=== PATIENT | male | born 1975 | race Caucasian/White ===

== ENCOUNTER 2017-01-20 17:53 | Emergency (ER) | payer BC ==
[~2017-01-20] VITALS: Ht 185.4 cm; Wt 92.9 kg
[2017-01-20 17:56] VITALS: TEMP 37; Ht 185.4 cm; Wt 92.9 kg
[2017-01-20] MEDS ORDERED: CLINDAMYCIN IV 900 MG in DEXTROSE 5% 100ML 100 ML IV ONE (18:15)
[2017-01-20] MEDS ORDERED: CLIN300C2 PO (18:22)
[2017-01-20 18:48] LABS: HEMATOCRIT 45.2 % (42-52); MEAN CELL VOLUME 90.2 fL (80-100); MEAN CORPUSCULAR HEMOGLOBIN 30.7 pg (25-34); MEAN CORPUSCULAR HGB CONC 34.1 g/dl (32-36); MEAN PLATELET VOLUME 9.6 fL (7.4-10.4); PLATELET COUNT 233 K/uL (130-400); RED BLOOD COUNT 5.01 M/uL (4.7-6.1); WHITE BLOOD COUNT 9.67 K/uL (4.8-10.8)
--- NOTE | 2017-01-20 19:03 | EMERGENCY ROOM VISIT NOTE ---
History Report prepared by Chong: Deuce Olmstead Under the Supervision of: Dr. Vijay Hartmann D.O. First contact with patient: 18:02 Chief Complaint: EAR PAIN Stated Complaint: INFECTION BEHIND R EAR History of Present Illness The patient is a 42 year old male who presents to the Emergency Room with complaints of a worsening possible infection behind his right ear that began two days ago. He rates his pain an 8/10 in severity. Since then, he has been able to pop the area. He states that the material that was expressed was brown and odorous. He received a prescription for Clindamycin that he has taken 3 doses of so far. He states that the area is very sore to touch. He has noticed the area is swelling and causing his neck to swell as well. He denies any history of MRSA. He denies any fevers. Source of History: patient Onset: two days ago Position: ear (behind right) Symptom Intensity: 8/10 Quality: ache Timing: constant Associated Symptoms: No fevers Note: He is having some increased swelling to the area and the right side of the neck as well. Review of Systems See HPI for pertinent positives & negatives. A total of 10 systems reviewed and were otherwise negative. Past Medical & Surgical Medical Problems: (1) No Known Active Medical Problems Family History Cancer Diabetes mellitus Hypertension Social History Smoking Status: Current Some Day Smoker Smokeless Tobacco Use: No Alcohol Use: occasionally Drug Use: none Marital Status: Housing Status: lives with significant other Occupation Status: employed Current/Historical Medications Scheduled Clindamycin Hcl (Cleocin), 300 MG PO TID Allergies Coded Allergies: Diphenhydramine (Verified Adverse Reaction, Severe, RESTLESSNESS, 01/20/17) Physical Exam Vital Signs Date Time Temp Pulse Resp B/P (MAP) Pulse Ox O2 Delivery O2 Flow Rate FiO2 01/20/17 17:56 37.0 90 18 134/83 97 Room Air Physical Exam CONSTITUTIONAL/VITAL SIGNS: Reviewed / noted above. GENERAL: Non-toxic in appearance. INTEGUMENTARY: Warm, dry, and [place]. HEAD: Normocephalic. EYES: without scleral icterus or trauma. ENT/OROPHARYNX: clear and moist. There is an area of right posterior oracular erythema with a small amount of edema and an area draining a small amount of sanguinous fluid. LYMPHADENOPATHY/NECK: Is supple without lymphadenopathy or meningismus. RESPIRATORY: Lungs clear and equal. CARDIOVASCULAR: Regular rate and rhythm. GI/ABDOMEN: Soft and nontender. No organomegaly or pulsatile mass. No rebound or guarding. Normal bowel sounds. EXTREMITIES: Warm and well perfused. BACK: No CVA tenderness. NEUROLOGICAL: Intact without focal deficits. PSYCHIATRIC: normal affect. MUSCULOSKELETAL: Normally developed with good muscle tone. Medical Decision & Procedures Laboratory Results 01/20/17 18:40 Test 01/20/17 18:40 Red Blood Count 5.01 M/uL (4.7-6.1) Mean Corpuscular Volume 90.2 fL (80-100) Mean Corpuscular Hemoglobin 30.7 pg (25-34) Mean Corpuscular Hemoglobin Concent 34.1 g/dl (32-36) RDW Standard Deviation 40.3 fL (36.4-46.3) RDW Coefficient of Variation 12.2 % (11.5-14.5) Mean Platelet Volume 9.6 fL (7.4-10.4) Laboratory results as stated above per my review. Medications Administered Medications (Trade) Dose Ordered Sig/Patsy Route Start Time Stop Time Status Last Admin Dose Admin Clindamycin Phosphate 900 mg/ Dextrose 106 ml @ 100 mls/hr ONE ONCE IV 01/20/17 18:15 01/20/17 19:18 01/20/17 18:38 100 MLS/HR ED Course 180: Previous medical records were reviewed. The patient was evaluated in room B10. A complete history and physical examination was performed. 1814: Ordered Clindamycin Phosphate 900 mg/Dextrose 106 ml @ 100 mls/hr IV 1904: On reevaluation, the patient is resting. I discussed the results and findings with the patient. He verbalized agreement of the treatment plan. He was discharged home. Medical Decision Differential diagnosis: Etiologies such as cellulitis, abscess, MRSA infection, DVT, necrotizing fasciitis, dermatitis, drug eruption, as well as others were entertained.. This is a 42-year-old male who presents to the ED with a chief complaint of an infection behind his right ear. The patient states that he has had this infection for a few days. He states that he squeezed it and draining some pus out of it. The patient was seen at [facility] last night. He was started on clindamycin. The patient has taken 3 doses of the clindamycin thus far. He states that he has not noticed any improvement. Exam reveals some posterior auricular erythema and mild swelling behind the right ear. There is a small wound that is draining some sanguinous fluid. There is no obvious abscess. There is no significant swelling of the face. There is no lymphadenopathy. The patient was given IV clindamycin 900 mg. He had a normal CBC. The patient will continue his clindamycin and anticipate improvement over the next several days. They ([facility]) did do a culture which is pending. Medication Reconcilliation Current Medication List: was personally reviewed by me Blood Pressure Screening Patient's blood pressure: Normal blood pressure Blood pressure disposition: Did not require urgent referral Impression Primary Impression: Cellulitis Scribe Attestation The scribe's documentation has been prepared under my direction and personally reviewed by me in its entirety. I confirm that the note above accurately reflects all work, treatment, procedures, and medical decision making performed by me. Departure Information Dispostion Home / Self-Care Referrals No Doctor, Assigned (PCP) Forms HOME CARE DOCUMENTATION FORM, IMPORTANT VISIT INFORMATION, WORK / SCHOOL INSTRUCTIONS Patient Instructions My [facility] Additional Instructions Continue clindamycin. Follow-up with [facility] for culture results. Follow-up with your doctor for recheck in 2-3 days. Return for fevers, vomiting, significant worsening of symptoms or lack of improvement in 5-7 days.
[2017-01-20 19:31] VITALS: BP 128/71; PULSE 86; O2SAT 96
== END 2017-01-20 19:32 | disposition home or self-care (01) ==
LOC: C.EDB 17:54
DX: H60.11 Cellulitis of right external ear (principal); F17.200 Nicotine dependence, unspecified, uncomplicated; Z83.3 Family history of diabetes mellitus; Z82.49 Family history of ischemic heart disease and other diseases of the circulatory system